=== PATIENT | female | born 1985 ===

== ENCOUNTER 2020-01-30 18:05 | Emergency (ER) | payer SELFPAY ==
--- NOTE | 2020-01-30 18:13 | Emergency Department Report ---
Blank Doc - Documentation Documentation: 34-year-old female that presents with pelvic pain and vaginal bleeding. 7 weeks . This initial assessment/diagnostic orders/clinical plan/treatment(s) is/are subject to change based on patient's health status, clinical progression and re- assessment by fellow clinical providers in the ED. Further treatment and workup at subsequent clinical providers discretion. Patient/guardians urged not to elope from the ED as their condition may be serious if not clinically assessed and managed. Initial orders include: 1- Patient sent to [facility] for further evaluation and treatment 2- UA 3- labs 4- US OB
[2020-01-30 19:23] LABS: Bacteria,Urine 4+ /HPF (Negative); Bilirubin,Urine NEG (Negative); Blood,Urine MOD (Negative); Color,Urine Amber (Yellow); Mucus,Urine 3+ /HPF
--- NOTE | 2020-01-30 20:16 | Ultrasound Report ---
ULTRASOUND OBSTETRIC INDICATION / CLINICAL INFORMATION: pelvic pain and vaginal bleeding. Clinical Gestational Age (GA): 8 weeks 0 days by LMP TECHNIQUE: Transabdominal and Transvaginal. COMPARISON: None available. FINDINGS: GESTATIONAL SAC: Well-defined oval shape and intrauterine in location. YOLK SAC: No significant abnormality. EMBRYO/FETUS: No significant abnormality. - [place]-Rump Length = 2.0 cm = 8 weeks, 4 day(s). - Heart Rate, beats per minute (if present) = 174 ADNEXA: No significant abnormality. FREE FLUID: None. ADDITIONAL FINDINGS: None. IMPRESSION: 1. Single, living intrauterine with estimated sonographic age of 8 weeks, 4 day(s). Signer Name: Vicente Davidson MD Signed: 01/30/2020 8:12 PM Workstation Name: [id number]
--- NOTE | 2020-01-30 20:16 | Ultrasound Report ---
ULTRASOUND OBSTETRIC INDICATION / CLINICAL INFORMATION: pelvic pain and vaginal bleeding. Clinical Gestational Age (GA): 8 weeks 0 days by LMP TECHNIQUE: Transabdominal and Transvaginal. COMPARISON: None available. FINDINGS: GESTATIONAL SAC: Well-defined oval shape and intrauterine in location. YOLK SAC: No significant abnormality. EMBRYO/FETUS: No significant abnormality. - [place]-Rump Length = 2.0 cm = 8 weeks, 4 day(s). - Heart Rate, beats per minute (if present) = 174 ADNEXA: No significant abnormality. FREE FLUID: None. ADDITIONAL FINDINGS: None. IMPRESSION: 1. Single, living intrauterine with estimated sonographic age of 8 weeks, 4 day(s). Signer Name: Vicente Davidson MD Signed: 01/30/2020 8:12 PM Workstation Name: [id number]
[2020-01-30] MEDS ORDERED: METOCLOPRAMIDE 10 MG TAB PO ONE (20:25)
[2020-01-30] MEDS ORDERED: diphenhydrAMINE 25 MG CAP PO ONE (20:25)
[2020-01-30] MEDS ORDERED: ACETAMINOPHEN 325 MG TAB PO ONE (20:25)
[2020-01-30 20:39] LABS: Eosinophils # (Auto) 0.1 K/mm3 (0.0-0.4); Eosinophils % (Auto) 0.7 % (0.0-4.3); Hematocrit 41.6 % (30.3-42.9); Hemoglobin 13.9 gm/dl (10.1-14.3); Lymphocytes # (Auto) 2.6 K/mm3 (1.2-5.4); Lymphocytes % (Auto) 22.8 % (13.4-35.0); Mean Corpuscular HGB Conc 34 % (30-34); Mean Corpuscular Volume 92 fl (79-97); Monocytes # (Auto) 0.5 K/mm3 (0.0-0.8); Monocytes % (Auto) 4.1 % (0.0-7.3); Platelet Count 292 K/mm3 (140-440); Red Blood Count 4.53 M/mm3 (3.65-5.03); Red Cell Distribution Width 12.6 % (13.2-15.2)
--- NOTE | 2020-01-30 20:43 | Emergency Department Report ---
ED HPI - General Chief complaint: Abdominal Pain Stated complaint: HEADACHE/ABD PAIN/VAG BLEEDING Time Seen by Provider: 01/30/20 18:12 Source: patient, internet marketing executive Mode of arrival: Ambulatory Limitations: Language Barrier - History of Present Illness Initial comments: Patient is a 34-year-old female presents the emergency room with complaints of lower abdominal pain. She states that she is also had occasional vaginal spotting and headache. She states that she is currently 8 weeks . She states that she does have an SURGICAL AIDE and her first appointment was a week ago. She states that the OB told her everything looked normal then and she had a US at that time which showed IUP per pt. She states that she has urinary frequency. She denies any vaginal discharge, vaginal itching, vaginal burning, dysuria, nausea, vomiting, diarrhea, fever. She has a past medical history of ectopic which she had to have surgically removed. She denies any allergies to medications. States her last menstrual cycle was December 07. /P:2/A:1 Language line used for British interpretation - Related Data Previous Rx's Medication Instructions Recorded Last Taken Type Acetaminophen [Tylenol] 650 mg PO Q8HR PRN #20 capsule 01/30/20 Unknown Rx cephALEXin [Keflex] 500 mg PO BID 7 Days #14 cap 01/30/20 Unknown Rx Allergies Allergy/AdvReac Type Severity Reaction Status Date / Time No Known Allergies Allergy Unverified 01/30/20 18:09 ED Review of Systems ROS: Stated complaint: HEADACHE/ABD PAIN/VAG BLEEDING Other details as noted in HPI Comment: All other systems reviewed and negative ED Past Medical Hx - Past Medical History Previous Medical History?: No - Surgical History Past Surgical History?: Yes Additional Surgical History: C section - Social History Smoking Status: Never Smoker Substance Use Type: None - Medications Home Medications: Home Medications Medication Instructions Recorded Confirmed Last Taken Type Acetaminophen [Tylenol] 650 mg PO Q8HR PRN #20 capsule 01/30/20 Unknown Rx cephALEXin [Keflex] 500 mg PO BID 7 Days #14 cap 01/30/20 Unknown Rx ED Physical Exam - General Limitations: Language Barrier General appearance: alert, in no apparent distress - Head Head exam: Present: atraumatic, normocephalic - Eye Eye exam: Present: normal appearance, PERRL, EOMI - ENT ENT exam: Present: mucous membranes moist - Respiratory Respiratory exam: Present: normal lung sounds bilaterally. Absent: respiratory distress, wheezes, rales, rhonchi, stridor, chest wall tenderness, accessory muscle use, decreased breath sounds, prolonged expiratory - Cardiovascular Cardiovascular Exam: Present: regular rate, normal rhythm, normal heart sounds. Absent: systolic murmur, diastolic murmur, rubs, gallop - GI/Abdominal GI/Abdominal exam: Present: soft, normal bowel sounds. Absent: distended, tenderness, guarding, rebound, rigid - Neurological Exam Neurological exam: Present: alert, oriented X3, CN II-XII intact, normal gait. Absent: motor sensory deficit - Psychiatric Psychiatric exam: Present: normal affect, normal mood - Skin Skin exam: Present: warm, dry, intact ED Course Vital Signs 01/30/20 01/30/20 18:13 22:13 Temperature 98.5 F 98.4 F Pulse Rate 90 88 Respiratory 18 16 Rate Blood Pressure 142/96 Blood Pressure 130/84 [Left] O2 Sat by Pulse 97 98 Oximetry ED Medical Decision Making - Lab Data Result diagrams: 01/30/20 20:23 Lab Results 01/30/20 01/30/20 01/30/20 Range/Units 18:33 20:23 20:23 WBC 11.4 H (4.5-11.0) K/mm3 RBC 4.53 (3.65-5.03) M/mm3 Hgb 13.9 (10.1-14.3) gm/dl Hct 41.6 (30.3-42.9) % MCV 92 (79-97) fl MCH 31 (28-32) pg MCHC 34 (30-34) % RDW 12.6 L (13.2-15.2) % Plt Count 292 (140-440) K/mm3 Lymph % (Auto) 22.8 (13.4-35.0) % Taney % (Auto) 4.1 (0.0-7.3) % Eos % (Auto) 0.7 (0.0-4.3) % Baso % (Auto) 0.0 (0.0-1.8) % Lymph # 2.6 (1.2-5.4) K/mm3 Taney # 0.5 (0.0-0.8) K/mm3 Eos # 0.1 (0.0-0.4) K/mm3 Baso # 0.0 (0.0-0.1) K/mm3 Seg Neutrophils % 72.4 H (40.0-70.0) % Seg Neutrophils # 8.2 H (1.8-7.7) K/mm3 HCG, Quant 90916 H (0-4) mIU/mL Urine Color Kerry (Yellow) Urine Turbidity Cloudy (Clear) Urine pH 5.0 (5.0-7.0) Ur Specific Monitor 1.027 (1.003-1.030) Urine Protein 30 mg/dl (Negative) mg/dL Urine Glucose (UA) Neg (Negative) mg/dL Urine Ketones Neg (Negative) mg/dL Urine Blood Mod (Negative) Urine Nitrite Neg (Negative) Urine Bilirubin Neg (Negative) Urine Urobilinogen 2.0 (<2.0) mg/dL Ur Leukocyte Esterase Mod (Negative) Urine WBC (Auto) 20.0 H (0.0-6.0) /HPF Urine RBC (Auto) 26.0 (0.0-6.0) /HPF U Epithel Cells (Auto) 36.0 H (0-13.0) /HPF Urine Bacteria (Auto) 4+ (Negative) /HPF Urine Mucus 3+ /HPF Blood Type 01/30/20 Range/Units 20:23 WBC (4.5-11.0) K/mm3 RBC (3.65-5.03) M/mm3 Hgb (10.1-14.3) gm/dl Hct (30.3-42.9) % MCV (79-97) fl MCH (28-32) pg MCHC (30-34) % RDW (13.2-15.2) % Plt Count (140-440) K/mm3 Lymph % (Auto) (13.4-35.0) % Taney % (Auto) (0.0-7.3) % Eos % (Auto) (0.0-4.3) % Baso % (Auto) (0.0-1.8) % Lymph # (1.2-5.4) K/mm3 Taney # (0.0-0.8) K/mm3 Eos # (0.0-0.4) K/mm3 Baso # (0.0-0.1) K/mm3 Seg Neutrophils % (40.0-70.0) % Seg Neutrophils # (1.8-7.7) K/mm3 HCG, Quant (0-4) mIU/mL Urine Color (Yellow) Urine Turbidity (Clear) Urine pH (5.0-7.0) Ur Specific Monitor (1.003-1.030) Urine Protein (Negative) mg/dL Urine Glucose (UA) (Negative) mg/dL Urine Ketones (Negative) mg/dL Urine Blood (Negative) Urine Nitrite (Negative) Urine Bilirubin (Negative) Urine Urobilinogen (<2.0) mg/dL Ur Leukocyte Esterase (Negative) Urine WBC (Auto) (0.0-6.0) /HPF Urine RBC (Auto) (0.0-6.0) /HPF U Epithel Cells (Auto) (0-13.0) /HPF Urine Bacteria (Auto) (Negative) /HPF Urine Mucus /HPF Blood Type O POSITIVE - Radiology Data Radiology results: report reviewed OB ultrasound Dictated by Vicente Davidson MD Single, living intrauterine with estimated sonographic age of 8 weeks 4 days. No significant abnormality of adnexa - Medical Decision Making Patient is a 34-year-old female presents the emergency room with complaints of lower abdominal pain. She states that she is also had occasional vaginal spotting and headache. She states that she is currently 8 weeks . She states that she does have an SURGICAL AIDE and her first appointment was a week ago. She states that the OB told her everything looked normal then and she had a US at that time which showed IUP per pt. She states that she has urinary frequency. She denies any vaginal discharge, vaginal itching, vaginal burning, dysuria, nausea, vomiting, diarrhea, fever. She has a past medical history of ectopic which she had to have surgically removed. She denies any allergies to medications. States her last menstrual cycle was December 07. /P:2/A:1. Vitals are stable. No abnormality on physical examination as documented in chart. [place] [address]. UA shows evidence of UTI with many white blood cells and moderate leukocyte esterase. Patient is O+ blood type. OB US: Single, living intrauterine with estimated sonographic age of 8 weeks 4 days. No significant abnormality of adnexa. Discussed all results with patient and answered questions. Patient given Tylenol, Reglan, Benadryl and symptoms completely improved and patient was feeling much better and ready to go home. Patient given prescription for Keflex and Tylenol. advised pt to Please take medication as prescribed. Increase your fluid intake. Please take a vitamin [id number]. Follow-up with your SURGICAL AIDE in the next 2 days. It is very important that you have close follow-up. you need to have a repeat hcg quant in two [place] [address]. Return to the emergency room immediately for any new or worsening symptoms. Language line used for British interpretation - Differential Diagnosis IUP, ectopic, UTI, ovarian cyst, subchorionic hemorrhage, placenta previa Critical care attestation.: If time is entered above; I have spent that time in minutes in the direct care of this critically ill patient, excluding procedure time. ED Disposition Clinical Impression: Vaginal spotting Qualifiers: Weeks of gestation: 8 weeks Qualified Code(s): Z3A.08 - 8 weeks gestation of UTI (urinary tract infection) Qualifiers: Urinary tract infection type: acute cystitis Hematuria presence: with hematuria Qualified Code(s): N30.01 - Acute cystitis with hematuria Abdominal pain in Qualifiers: Trimester: first trimester Qualified Code(s): O26.891 - Other specified related conditions, first trimester Disposition: DC-01 TO HOME OR SELFCARE Is pt being admited?: No Does the pt Need Aspirin: No Condition: Stable Instructions: Urinary Tract Infection in Women (ED), Abdominal Pain in (ED) Additional Instructions: Please take medication as prescribed. Increase your fluid intake. Please take a vitamin [id number]. Follow-up with your SURGICAL AIDE in the next 2 days. It is very important that you have close follow-up. you need to have a repeat hcg quant in two [place] [address]. Return to the emergency room immediately for any new or worsening symptoms. Por favor, tome los medicamentos segn lo prescrito. Aumente la ingesta de lquidos. Por favor, tome veena vitamina de venta satish. Seguimiento con peña obstetra / ginecsculo en los prximos 2 stark. Es muy importante que tenga un seguimiento cercano. necesitas tener un cuanto de hcg repetido en dos stark[place] [address]. Regrese a la rhonda de emergencias inmediatamente para cualquier sntoma nuevo o que empeore. 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
[2020-01-30 22:15] VITALS: BP 130/84
== END 2020-01-30 22:13 | disposition home or self-care (01) ==
LOC: ED 18:05
DX: O23.41 Unspecified infection of urinary tract in pregnancy, first trimester (principal); O26.851 Spotting complicating pregnancy, first trimester; O26.891 Other specified pregnancy related conditions, first trimester; R10.9 Unspecified abdominal pain; Z3A.08 8 weeks gestation of pregnancy; Z79.899 Other long term (current) drug therapy
CPT/HCPCS: 36415; 76801; 76817; 81001; 84702; 85025; 86900; 86901; 87086

== ENCOUNTER 2020-09-05 09:22 | Inpatient (IN) | payer MEDICAID, OTHER, SELFPAY ==
[2020-09-05] MEDS ORDERED: BICITRA ORAL LIQD 30ML ONE (12:33)
[2020-09-05] MEDS ORDERED: OXYTOCIN DRIP 30,000 MILLIUNITS/500 ML BAG IV ONE ×2 (12:33→12:35)
[2020-09-05] MEDS ORDERED: ceFAZolin/Water 2 GM/20 ML 2 GM/20 ML SYRINGE IV ONE (12:34)
[2020-09-05] MEDS ORDERED: METOCLOPRAMIDE 10 MG/2 ML INJ ONE (12:34)
[2020-09-05] MEDS ORDERED: FAMOTIDINE 20 MG/2 ML INJ IV ONE (12:34)
[2020-09-05] MEDS ORDERED: OXYTOCIN/NS 30 UNIT/500 ML DRIP IV ONE (13:30)
[2020-09-05] MEDS ORDERED: ONDANSETRON 4 MG/2 ML INJ ONE ×2 (13:30→13:33)
[2020-09-05] MEDS ORDERED: ceFAZolin/STERILE WATER 2 GM/20 ML SYRINGE IV ONE ×2 (13:30→13:45)
[2020-09-05] MEDS ORDERED: BUPIVACAINE/PF (0.5%) 5 MG/1 ML 30 ML VIAL INFILTRATI ONE ×2 (13:30→13:33)
[2020-09-05] MEDS ORDERED: ePHEDrine SULFATE 50 MG/1 ML INJ ONE ×2 (13:30→13:33)
[2020-09-05] MEDS ORDERED: OXYTOCIN 10 UNIT/1 ML INJ ONE ×2 (13:30→14:18)
[2020-09-05] MEDS ORDERED: METHYLERGONOVINE MALEATE 0.2 MG/ML VIAL IM ONE ×2 (13:30→15:38)
[2020-09-05] MEDS ORDERED: KETOROLAC 30 MG/1 ML INJ ONE ×2 (13:30→13:33)
[2020-09-05] MEDS ORDERED: LACTATED RINGERS 1000 ML IV SOLN ONE (13:30)
[2020-09-05] MEDS ORDERED: PHENYLEPHRINE/NS 1,000 MCG/10 ML SYRINGE (OR USE) IV ONE ×2 (13:30→13:33)
[2020-09-05] MEDS ORDERED: LACTATED RINGERS 1,000 ML ONE (13:35)
[2020-09-05] MEDS ORDERED: SODIUM CHLORIDE 0.9% IRR 1,500 ML BOTTLE IR ONE (13:45)
[2020-09-05] MEDS ORDERED: WATER FOR IRRIG STERILE 1,500 ML BOTTLE IR ONE (13:45)
[2020-09-05] MEDS ORDERED: HYDROmorphone 1 MG/1 ML INJ IV PRN (19:22)
[2020-09-05] MEDS ORDERED: NalbUPHINE 10 MG/1 ML INJ IV PRN (19:22)
[2020-09-05] MEDS ORDERED: PROMETHAZINE 25 MG TAB PO PRN (19:22)
[2020-09-05] MEDS ORDERED: ONDANSETRON 4 MG/2 ML INJ IV PRN ×2 (19:22→20:57)
[2020-09-05] MEDS ORDERED: PROMETHAZINE 25 MG RECT SUPP PR PRN ×2 (19:22→20:57)
[2020-09-05] MEDS ORDERED: diphenhydrAMINE 50 MG/ML VIAL IV PRN (19:22)
[2020-09-05] MEDS ORDERED: NALOXONE 0.4 MG/1 ML INJ IV PRN ×2 (19:22→20:57)
--- NOTE | 2020-09-05 19:23 | Anesthesia Day of Surgery ---
Anesthesia Day of Surgery - Day of Surgery Patient Examined: Yes Patient H&P Reviewed: Yes Patient is NPO: Yes Beta Blockers: No Cardiac Clearance: No Pulmonary Clearance: No Ronnie's Test: N/A
--- NOTE | 2020-09-05 19:24 | Anesthesia Consultation ---
Anesthesia Consult and Med Hx Date of service: 09/05/20 - Airway Anesthetic Teeth Evaluation: Good ROM Head & Neck: Adequate Mental/Hyoid Distance: Adequate Mallampati Class: Class II Intubation Access Assessment: Probably Good - Pulmonary Exam CTA: Yes - Cardiac Exam Cardiac Exam: RRR - Pre-Operative Health Status ASA Pre-Surgery Classification: ASA2 Proposed Anesthetic Plan: Spinal - Pulmonary Hx Smoking: No Hx Sleep Apnea: No - Cardiovascular System Hx Hypertension: No Hx Heart Attack/AMI: No - Gastrointestinal Hx Gastroesophageal Reflux Disease: No - Endocrine Hx Insulin Dependent Diabetes: No Hx Non-Insulin Dependent Diabetes: No
--- NOTE | 2020-09-05 19:28 | Progress Note ---
Regional Anesthesia Block - Regional Anesthesia Block Start Time: 15:05 Stop Time: 15:15 Performed By:: JOSH FULLER ([facility]) Procedure: Patient consented for TAP block for post surgical pain management. Patient identified, monitors placed, and time out performed. Mid axillary TAP identified bilaterally via ultrasound. Skin prepped bilaterally with [chlorhexidine] and [20g stimuplex] needle advanced to the TAP. 30ml [Marcaine 0.25% with 25mcg Precedex and Decadron 4mg] injected under ultrasound guidance on the [left] side. 30ml [Marcaine 0.25% with 25mcg Precedex and Decadron 4mg] injected under ultrasound guidance on the [right] side.
--- NOTE | 2020-09-05 20:54 | Event Note ---
Date: 09/05/20 Documentation including H&P and Operative report can be found on A# [id number]. This is because of downtime. These two accounts need to be merg ed as they are apart of the same patient encounter.
[2020-09-05] MEDS ORDERED: WITCH HAZEL/ GLYCERIN PAD TP PRN (20:57)
[2020-09-05] MEDS ORDERED: HYDROCORTISONE 25 MG RECTAL SUPP PR PRN (20:57)
[2020-09-05] MEDS ORDERED: MORPHINE 4 MG/1 ML INJ IV PRN (20:57)
[2020-09-05] MEDS ORDERED: MAGNESIUM HYDROXIDE (MOM) ORAL LIQD UDC PO PRN (20:57)
[2020-09-05] MEDS ORDERED: LANOLIN/ZINC/DIMETHICONE (LANSINOH) 7 GM TP PRN (20:57)
[2020-09-05] MEDS ORDERED: SENNOSIDES 8.6 MG TAB PO PRN (20:57)
[2020-09-05] MEDS ORDERED: SIMETHICONE 80 MG CHEW TAB PO PRN (20:57)
[2020-09-05] MEDS ORDERED: OXYTOCIN DRIP 30 UNITS/500 ML BAG IV SCH (21:00)
[2020-09-05] MEDS: LACTATED RINGERS 1,000 ML IV SCH (21:33)
[2020-09-05] MEDS: KETOROLAC 30 MG/1 ML INJ IV SCH (21:34)
[2020-09-06] MEDS: KETOROLAC 30 MG/1 ML INJ IV SCH ×2 (03:46→11:18)
[2020-09-06] MEDS: LACTATED RINGERS 1,000 ML IV SCH (05:27)
--- NOTE | 2020-09-06 06:28 | History and Physical Report ---
History of Present Illness Date of examination: 09/06/20 Date of admission: 09/05/20 09:22 Chief complaint: repeat c/s History of present illness: 35 go A1 at 39w0d c/b hx ectopic preganncy s/p salpingectomy, c/s x 1, rubella non-immune presenting for repeat c/s + BTL. Patient desiring permanent sterilization. GBS unknown. Denies labor complaints or PIH symptoms. +FM. Past History Past Medical History: no pertinent history Past Surgical History: section (x 1), other (sapinectomy for ectopic , unknown laterality) Family/Genetic History: none Social history: no significant social history - Obstetrical History : 4 Para: 2 Hx # Term Pregnancies: 2 Spontaneous Abortions: 1 Number of Living Children: 2 Medications and Allergies Allergies Allergy/AdvReac Type Severity Reaction Status Date / Time No Known Allergies Allergy Unverified 01/30/20 18:09 Home Medications Medication Instructions Recorded Confirmed Last Taken Type Acetaminophen [Tylenol] 650 mg PO Q8HR PRN #20 capsule 01/30/20 Unknown Rx cephALEXin [Keflex] 500 mg PO BID 7 Days #14 cap 01/30/20 Unknown Rx Active Meds: Active Medications Diphenhydramine HCl (Benadryl) 12.5 mg IV Q2H PRN PRN Reason: Itching Hydrocortisone Acetate (Anucort-Hc) 25 mg MS BID PRN PRN Reason: Hemorrhoids Hydromorphone HCl (Dilaudid) 0.5 mg IV Q4H PRN PRN Reason: breakthrough pain > 7/10 Oxytocin/Sodium Chloride (Pitocin/Ns 30 Unit/500ml) 30 units in 500 mls @ 40 mls/hr IV TITR LISA; Protocol Lactated Ringer's (Lactated Ringers) 1,000 mls @ 125 mls/hr IV DIRECT LISA Last Admin: 09/06/20 05:27 Dose: 125 mls/hr Documented by: Ibuprofen (Ibuprofen) 800 mg PO Q6H PRN PRN Reason: Pain, Mild (1-3) Ketorolac Tromethamine (Toradol) 30 mg IV Q6H LISA Stop: 09/06/20 09:01 Last Admin: 09/06/20 03:46 Dose: 30 mg Documented by: Magnesium Hydroxide (Milk Of Magnesia) 30 ml PO QHS PRN PRN Reason: Constip Unrelieved By Senna Morphine Sulfate (Morphine) 4 mg IV Q4H PRN PRN Reason: Pain , Severe (7-10) Multi-Ingredient Ointment (Lansinoh) 1 applic TP PRN PRN PRN Reason: dryness/cracking Nalbuphine HCl (Nalbuphine) 2.5 mg IV Q2H PRN PRN Reason: Itching Naloxone HCl (Naloxone) 0.1 mg IV Q2MIN PRN PRN Reason: Res Rate </= 8 or 02 SAT < 92% Ondansetron HCl (Zofran) 4 mg IV Q8H PRN PRN Reason: Nausea And Vomiting Ondansetron HCl (Zofran) 4 mg IV Q8H PRN PRN Reason: Nausea And Vomiting Oxycodone/Acetaminophen (Percocet 5/325) 1 tab PO Q6H PRN PRN Reason: Pain, Moderate (4-6) Promethazine HCl (Phenergan) 25 mg PO Q6H PRN PRN Reason: Nausea And Vomiting Promethazine HCl (Phenergan) 25 mg MS Q6H PRN PRN Reason: N/V IF NPO AND NO IV ACCESS Senna (Senokot) 17.2 mg PO QHS PRN PRN Reason: Constipation Simethicone (Mylicon) 80 mg PO Q6H PRN PRN Reason: Gas pain Sodium Chloride (Sodium Chloride Flush Syringe 10 Ml) 10 ml IV PRN PRN PRN Reason: LINE FLUSH Witch Naima/Glycerin (Tucks Pad) 1 each TP PRN PRN PRN Reason: Hemorrhoids/cleansing/soothing Review of Systems All systems: negative (expect HPI) - Vital Signs Vital signs: Vital Signs Temp Pulse Resp BP 98.6 F 74 16 117/74 09/05/20 19:30 09/05/20 19:30 09/05/20 19:30 09/05/20 19:30 Temp Pulse Resp BP Pulse Ox 98.6 F 74 18 103/78 09/06/20 00:00 09/06/20 00:00 09/06/20 03:46 09/06/20 00:00 - Physical Exam Abdomen: Positive: normal appearance, normal bowel sounds, other (gravid, well appearing vertical midline and pfannenstiel scar) - Obstetrical FHR: category 1 Uterine Contraction Monitor Mode: External Uterine Contraction Pattern: Absent Results All other labs normal. Assessment and Plan - Patient Problems (1) H/O: Current Visit: No Status: Acute Plan to address problem: To OR for Repeat c section + Bilateral tubal ligation. --Declines future fertility --Questions solicited and answered --Consented in the chart
--- NOTE | 2020-09-06 06:33 | Procedure Note ---
OB Delivery Note - Delivery Date of Delivery: 09/05/20 Surgeon: JOSEPH HEART JR Estimated blood loss: other (800cc) - Section Preop diagnosis: repeat Postop diagnosis: same section procedure: section, repeat low transverse, bilateral tubal ligation Disposition: PACU Complications: none Narrative: Indication: 35 go A1 at 39w0d c/b hx ectopic preganncy s/p salpingectomy (unknown laterality), c/s x 1, rubella non-immune presenting for repeat c/s + BTL Findings: Normal uterus and ovaries. Right tube normal. Left tube noted to be previously transected. Clear fluid. Nuchal cord x 1. of male at 1357 Height 19.25 inches Weight 3065 g Apgars 8/9 EBL 800 cc Intraoperative IV fluids 700 cc Urine output 100 cc Procedure: Patient was taken to the operating room prepped and draped in the usual sterile fashion. Vertical midline skin incision was made and carried down to the underlying fascia. Fascia was incised and the incision was distended bilaterally. Rectus fascia was dissected off the rectus muscle superiorly and inferiorly. Peritoneum was identified and entered. Peritoneal incision extended superiorly and inferiorly. The bladder was visualized. The bladder blade was placed. Uterine hysterotomy incision was made and extended bilaterally. The baby was delivered in the typical vertex fashion. Nuchal x1 was noted and reduced. Baby was bulb suction at delivery. The cord was cut and clamped and handed off to the team. The placenta was delivered spontaneously. The uterus was exteriorized and cleared of all clots and debris. Uterine incision was closed with a 0 Vicryl in a running locked fashion. Tubal ligation was completed on the right side first by grabbing the mid isthmic tubal segment with a Blanca clamp elevating it away from the uterine body. Using a hemostat 2-0 chromic suture was used in order to ligate the tubal segment proximally, then distally. The intervening portion of the tubal segment was resected with Metzenbaum scissors and sent to pathology. The left tube was noted to be previously transected and a Filshie clamp was used in order to clamp the remaining tubal segment immediately distal to the uterine body. Hemablast was used for hemostasis. Good hemostasis was noted. The urine was noted to be clear. Uterus, tubes, and ovaries were returned to the abdominal cavity. Bilateral gutters were cleared and the abdomen and pelvis were irrigated. Good hemostasis noted. Attention was directed towards the rectus fascia which was reapproximated with 0 PDS in a running fashion. The subcutaneous tissue was irrigated and reapproximated with 2-0 Vicryl in a running fashion. Skin was closed with a 4-0 Vicryl in a subcuticular fashion. The procedure was completed and the patient tolerated the procedure well. All instruments and lap counts were correct x2. - A at 1 minute: 8 at 5 minutes: 9 Infant Gender: Male
--- NOTE | 2020-09-06 09:02 | Post Anesthesia Evaluation ---
- Post Anesthesia Evaluation Patient Participated: Yes Airway Patent: Yes Stable Respiratory Function: Yes Nausea/Vomiting: No Temp > 96.8F: Yes Pain Manageable: Yes Adequeate Hydration: Yes Anesthesia Complications: No Block Receding Appropriately: Yes Patient on Ventilator: No
[2020-09-06 09:32] LABS: Hematocrit 27.3 % (30.3-42.9); Hemoglobin 9.2 gm/dl (10.1-14.3)
--- NOTE | 2020-09-06 12:31 | Progress Note ---
Assessment and Plan A: Post op Day 1 Asymptomatic Anemia P: Follow Routine Postop orders FeSO4 325mg PO BID Encouraged ambulation. Subjective - Subjective Date of service: 09/06/20 Principal diagnosis: s/p repeat Patient reports: appetite normal, voiding normally, pain well controlled : doing well, bottle feeding Objective - Vital Signs Latest vital signs: Vital Signs Temp Pulse Resp BP Pulse Ox 09/06/20 11:18 20 09/06/20 08:00 98.3 F 73 18 105/61 95 09/06/20 03:46 18 09/06/20 00:00 98.6 F 74 18 103/78 09/05/20 21:34 20 09/05/20 19:30 98.6 F 74 16 117/74 Intake and Output 09/05/20 09/06/20 09/06/20 22:59 06:59 14:59 Intake Total 1487.5 Output Total 800 500 Balance 687.5 -500 Intake: IV 987.5 Lactated Ringers 1,000 ml 987.5 @ 125 mls/hr IV DIRECT LISA Rx#:[id number] Oral 200 Intake, Free Water 300 Output: Urine 800 500 Indwelling Catheter 800 Void 500 Other: Total, Intake Amount 200 Total, Output Amount 800 500 # Voids Void 1 Weight 72.575 kg - Exam Breasts: Present: normal Cardiovascular: Present: Regular rate, Normal S1, Normal S2 Lungs: Present: Clear to auscultation, Normal air movement Abdomen: Present: normal appearance, soft, normal bowel sounds Uterus: Present: normal, firm, fundal height below umbilicus Extremities: Present: normal Incision: Present: dry, dressed - Labs Labs: Abnormal lab results 09/06/20 Range/Units 09:10 Hgb 9.2 L (10.1-14.3) gm/dl Hct 27.3 L (30.3-42.9) %
[2020-09-06] MEDS: oxyCODONE /ACETAMINOPHEN 5-325MG TAB PO PRN ×2 (13:56→21:13)
[2020-09-06] MEDS: IBUPROFEN 800 MG TAB PO PRN (18:48)
[2020-09-06] MEDS: FERROUS SULFATE 325 MG TAB PO SCH ×2 (18:50→21:13)
[2020-09-07] MEDS: IBUPROFEN 800 MG TAB PO PRN (06:08)
[2020-09-07] MEDS: FERROUS SULFATE 325 MG TAB PO SCH (10:07)
[2020-09-07] MEDS: oxyCODONE /ACETAMINOPHEN 5-325MG TAB PO PRN (10:07)
--- NOTE | 2020-09-07 11:32 | Consultation ---
History of Present Illness - Reason for Consult Consult date: 09/07/20 Reason for consult: possible depression - History of Present Psychiatric Illness Jaimee Siddiqui is a 35y/o female patient who was admitted for child . During my interview with the patient today, she is lying in bed eating. Her spouse and the baby are at bedside. The patient is Hebrew speaking. Her spouse is translating for her. The patient is a/o x 3. She is calm and cooperative. She says she did not understand the form that she was feeling out. The patient denies feeling depressed or any down feelings. She says "I'm happy about my baby." She denies hallucinations of any kind. She also denies SI/HI. The patient denies any past psych history, psych meds or past attempt of s uicide. She also denies any fear or feelings of endangerment, she says "no, I want to go home. I don't fear going home." She denies any illicit drug use. PAST PSYCHIATRIC HISTORY: Diagnoses: Denies Suicide attempts or Self-harm behavior: Denies Prior psychiatric hospitalizations: Denies Substance Abuse history: Denies Previous psychiatric medications tried: Denies Outpatient treatment: Denies PAST MEDICAL HISTORY: None reported Family Psychiatric History: None reported or documented SOCIAL HISTORY Marital Status: Living Arrangements: With family Employment Status: Unemployed Access to guns/weapons: None reported Education: Middle school History of Abuse: None reported Legal History: None reported REVIEW OF SYSTEMS Constitutional: Negative for weight loss ENT: Negative for stridor Respiratory: Negative for cough or hemoptysis All other systems reviewed and are negative MSE Appearance: Dressed appropriately. Awake Behavior: calm and cooperative Mood: "good" Affect: Congruent Thought Process: Goal directed Speech: Normal tone and pace Thought Content Suicidal: Denies Homicidal: Denies Hallucinations: Denies Delusions: Denies Consciousness: Alert Cognition/Memory: Good Insight/Judgment: Good Assessment Mental Health Evaluation TREATMENT No medications at this time Sitter: defer to primary Medical: per primary Disposition: Do not recommend acute inpatient psychiatric treatment. Will sign off. Thank you for this consult. Medications and Allergies Allergies Allergy/AdvReac Type Severity Reaction Status Date / Time No Known Allergies Allergy Unverified 01/30/20 18:09 Home Medications Medication Instructions Recorded Confirmed Last Taken Type Acetaminophen [Tylenol] 650 mg PO Q8HR PRN #20 capsule 01/30/20 Unknown Rx cephALEXin [Keflex] 500 mg PO BID 7 Days #14 cap 01/30/20 Unknown Rx Active Meds: Active Medications Diphenhydramine HCl (Benadryl) 12.5 mg IV Q2H PRN PRN Reason: Itching Ferrous Sulfate (Feosol) 325 mg PO BID LISA Last Admin: 09/07/20 10:07 Dose: 325 mg Documented by: Hydrocortisone Acetate (Anucort-Hc) 25 mg LA BID PRN PRN Reason: Hemorrhoids Hydromorphone HCl (Dilaudid) 0.5 mg IV Q4H PRN PRN Reason: breakthrough pain > 7/10 Oxytocin/Sodium Chloride (Pitocin/Ns 30 Unit/500ml) 30 units in 500 mls @ 40 mls/hr IV TITR LISA; Protocol Lactated Ringer's (Lactated Ringers) 1,000 mls @ 125 mls/hr IV DIRECT LISA Last Admin: 09/06/20 05:27 Dose: 125 mls/hr Documented by: Ibuprofen (Ibuprofen) 800 mg PO Q6H PRN PRN Reason: Pain, Mild (1-3) Last Admin: 09/07/20 06:08 Dose: 800 mg Documented by: Magnesium Hydroxide (Milk Of Magnesia) 30 ml PO QHS PRN PRN Reason: Constip Unrelieved By Senna Morphine Sulfate (Morphine) 4 mg IV Q4H PRN PRN Reason: Pain , Severe (7-10) Multi-Ingredient Ointment (Lansinoh) 1 applic TP PRN PRN PRN Reason: dryness/cracking Nalbuphine HCl (Nalbuphine) 2.5 mg IV Q2H PRN PRN Reason: Itching Naloxone HCl (Naloxone) 0.1 mg IV Q2MIN PRN PRN Reason: Res Rate </= 8 or 02 SAT < 92% Ondansetron HCl (Zofran) 4 mg IV Q8H PRN PRN Reason: Nausea And Vomiting Ondansetron HCl (Zofran) 4 mg IV Q8H PRN PRN Reason: Nausea And Vomiting Oxycodone/Acetaminophen (Percocet 5/325) 1 tab PO Q6H PRN PRN Reason: Pain, Moderate (4-6) Last Admin: 09/07/20 10:07 Dose: 1 tab Documented by: Promethazine HCl (Phenergan) 25 mg PO Q6H PRN PRN Reason: Nausea And Vomiting Promethazine HCl (Phenergan) 25 mg LA Q6H PRN PRN Reason: N/V IF NPO AND NO IV ACCESS Senna (Senokot) 17.2 mg PO QHS PRN PRN Reason: Constipation Simethicone (Mylicon) 80 mg PO Q6H PRN PRN Reason: Gas pain Sodium Chloride (Sodium Chloride Flush Syringe 10 Ml) 10 ml IV PRN PRN PRN Reason: LINE FLUSH Witch Naima/Glycerin (Tucks Pad) 1 each TP PRN PRN PRN Reason: Hemorrhoids/cleansing/soothing Mental Status Exam - Vital signs Last Vital Signs Temp 98.0 F 09/07/20 08:06 Pulse 56 L 09/07/20 08:06 Resp 20 09/07/20 10:07 BP 105/64 09/07/20 08:06 Pulse Ox 95 09/07/20 08:06 Results Result Diagrams: 09/06/20 09:10 All other labs normal.
[2020-09-07 15:48] VITALS: BP 112/73
== END 2020-09-07 16:10 | disposition home or self-care (01) | DRG 785 ==
LOC: OB 09:22
PROVIDERS: ADMIT Obstetrics & Gynecology; ATTEND Obstetrics & Gynecology
PROC: 10D00Z1 Extraction of Products of Conception, Low, Open Approach (ICD-10-PCS; principal; 2020-09-06)
PROC: 0UB70ZZ Excision of Bilateral Fallopian Tubes, Open Approach (ICD-10-PCS; 2020-09-06)
DX: O69.81X0 Labor and delivery complicated by cord around neck, without compression, not applicable or unspecified (principal); O34.211 Maternal care for low transverse scar from previous cesarean delivery; Z37.0 Single live birth; Z3A.39 39 weeks gestation of pregnancy; O90.81 Anemia of the puerperium; Z20.828 Contact with and (suspected) exposure to other viral communicable diseases
CPT/HCPCS: 36415; 85014; 85018; 86592; 86850; 86900; 86901; 88302; 88305; 88341; 88342; G0378; J0690; J1885; J2210; J2370; J2405; J2590; J3490; J7120; U0003